=== PATIENT | female | born 1965 | race Caucasian/White ===

== ENCOUNTER 2022-06-20 03:14 | Day surgery (SDC) | payer OTHER, SELFPAY ==
[2022-06-14 11:54] VITALS: BMI 33.3
--- NOTE | 2022-06-19 09:34 | P.PNAN_ITS ---
Anes - Initial Pre Proc Eval Procedure: Operation Date: 06/20/22 11:30 Proposed Procedures p Colonoscopy - Emile Meeks MD Date/Time: 06/19/22 09:34 Surgeon: Emile Meeks MD Pre Op Diagnosis: rectal bleed Patient Data Age: 56 Gender: F Height: 1.6 m Weight: 85.5 kg Allergies Allergy/AdvReac Type Severity Reaction Status Date / Time escitalopram [From Lexapro] AdvReac Intermediate Nausea and Verified 06/20/22 10:28 Vomiting paroxetine [From Paxil] AdvReac Intermediate Anxiety Verified 06/20/22 10:28 Home Medications Medication Instructions Recorded Confirmed Type alprazolam 0.25 mg tablet 0.25 mg PO DAILY 06/01/22 06/20/22 History bupropion HCl 150 mg tablet,12 hr 150 mg PO BID 06/01/22 06/20/22 History sustained-release fluoxetine 40 mg capsule 40 mg PO DAILY 06/01/22 06/20/22 History Patient hx anesthesia problems: none Family hx anesthesia problems: none Results Review: All pre-operative results and documents have been reviewed as part of the pre- operative evaluation. [facility] Past Medical History Medical History Anxiety Depression Obesity Social History Social History Smoking status: Former smoker Tobacco type: cigarettes Alcohol intake: current Drinks per week: 5 Substance use type: does not use Living arrangements: with family Spiritual care concerns: No Anes - Eval Final PreProcedure Day of Procedure 06/19/22 09:34 Patient weight: obese Heart: regular rate and rhythm Lungs: clear to auscultation and normal air movement Airway: Mallampati scale class II Neurological: alert and oriented Last oral intake: >/= 8 hours ASA classification: II Emergent: no Anesthetic plan: proceed Anesthesia type and monitoring: general GIVS Results Review: All pre-operative results and documents have been reviewed as part of the pre- operative evaluation. Informed Consent: The patient's anesthetic plan and its attendant risks and benefits were discussed with the patient/family/POA. Questions were solicited and answers provided to the satisfaction of the patient/family/POA.
[2022-06-20 10:30] VITALS: BP 117/89; PULSE 90; RESP 16; TEMP 36.7; O2SAT 99
--- NOTE | 2022-06-20 10:31 | PM.HPGS ---
History of Present Illness History of Present Illness Consent: Risks, benefits, and alternatives have been discussed and questions answered. Patient agrees to proceed with procedure. Chief complaint: rectal bleed Narrative: Annie Osei is a 56 year old female Who reports that she went to the restroom and passed a large amount of bright red blood per rectum. this prompted her to follow up at [facility] for further evaluation. CT scan abdomen pelvis with contrast revealed sigmoid diverticulosis without evidence of diverticulitis.? Chronic mild thickening of the terminal ileum without substantial inflammatory fat stranding. Rectal bleeding lasted for approximately 24 hours then resolved. ? Review of Systems Review of Systems: All systems reviewed & are unremarkable except as noted in HPI and below PMFSH Past Medical History Medical History Anxiety Depression Obesity Social History Social History Smoking status: Former smoker Tobacco type: cigarettes Alcohol intake: current Drinks per week: 5 Substance use type: does not use Living arrangements: with family Spiritual care concerns: No Meds Home Medications and Allergies Home Medications Medication Instructions Recorded Confirmed Type alprazolam 0.25 mg tablet 0.25 mg PO DAILY 06/01/22 06/20/22 History bupropion HCl 150 mg tablet,12 hr 150 mg PO BID 06/01/22 06/20/22 History sustained-release fluoxetine 40 mg capsule 40 mg PO DAILY 06/01/22 06/20/22 History Allergies Allergy/AdvReac Type Severity Reaction Status Date / Time escitalopram [From Lexapro] AdvReac Intermediate Nausea and Verified 06/20/22 10:28 Vomiting paroxetine [From Paxil] AdvReac Intermediate Anxiety Verified 06/20/22 10:28 Exam Resp: Auscultation: clear to auscultation bilaterally Cardio: Rate: regular rate Rhythm: regular rhythm GI: GI Palp: Yes Soft to palpation and No Tenderness to palpation present (GI) Assessment and Plan Assessment and plan (1) Rectal bleeding: Code(s): K62.5 - Hemorrhage of anus and rectum Status: Acute Assessment and Plan: Colonoscopy with possible biopsy or polypectomy or cautery or injection of substances.
[2022-06-20] MEDS: LACTATED RINGERS 1,000 ML 150 ML IV CONT (10:41)
[2022-06-20 12:00] VITALS: BP 111/76; PULSE 80; RESP 19; O2SAT 98
[2022-06-20 12:10] VITALS: BP 105/77; PULSE 74; RESP 19; O2SAT 97
[2022-06-20 12:20] VITALS: BP 132/80; PULSE 73; RESP 19; O2SAT 100
== END 2022-06-20 12:30 | disposition home or self-care (01) ==
PROVIDERS: Visit Provider Internal Medicine Gastroenterology
PROC: 0DJD8ZZ Inspection of Lower Intestinal Tract, Via Natural or Artificial Opening Endoscopic (ICD-10-PCS; CPT 45378; principal; 2022-06-20 11:30)
DX: K92.1 Melena (principal); K64.8 Other hemorrhoids; F41.9 Anxiety disorder, unspecified; F32.A Depression, unspecified; E66.9 Obesity, unspecified; Z68.32 Body mass index [BMI] 32.0-32.9, adult; Z87.891 Personal history of nicotine dependence
CPT/HCPCS: 45378; J2001; J2704; J7120